=== PATIENT | female | born 1980 | race Two or more races ===

== ENCOUNTER 2018-10-08 11:40 | Emergency (ER) | payer SELFPAY ==
[~2018-10-08] VITALS: Ht 170.2 cm; Wt 59.0 kg
[2018-10-08 11:43] VITALS: BP 116/84
--- NOTE | 2018-10-08 12:40 | NUR ---
For discharge-ACI given verbalized understanding home ambulatory stable.
== END 2018-10-08 12:45 | disposition home or self-care (01) ==
LOC: ER 11:42
DX: J06.9 Acute upper respiratory infection, unspecified (principal)
CPT/HCPCS: 99283; A4606